=== PATIENT | male | born 1945 | race Caucasian/White ===

== ENCOUNTER 2017-01-27 16:19 | Outpatient (CLI) | payer MEDICARE, OTHER | END 2017-01-27 16:20 | disposition home or self-care (01) | DX: M51.36 Other intervertebral disc degeneration, lumbar region (principal) ==

== ENCOUNTER 2017-04-13 17:56 | Emergency (ER) | payer MEDICARE, OTHER ==
--- NOTE | 2017-04-13 18:46 | ED Physician Documentation ---
PD HPI ABD PAIN - Stated complaint Stated Complaint: ABD PX/FEVER - Chief complaint Chief Complaint: Abd Pain - History obtained from History obtained from: Patient - History of Present Illness Timing - onset: How many days ago (4) Timing - duration: Days (4) Timing - details: Abrupt onset, Still present (onset 4 days ago of central abdominal pain. Some nausea but no vomiting. easy satiety with eating, so less intake. Still drinking fluids so feels hydrated. Did not have BM for 5 days so though he might be constipated and took stool softener. [place] chilled couple days ago but no recorded fevers. Some hesitancy of urination. No leg weakness nor numbness.), Waxing and waning Quality: Cramping, Aching, Pain Location: Periumbilical Radiation: Lower back Improved by: No: Eating Worsened by: Eating (not worse pain but feels full easily) Associated symptoms: Nausea, Constipation, Hematuria (couple weeks ago for 1 days then stopped and has not had recurrence, but feels hesitancy and frequency with urination since.). No: Fever, Vomiting, Diarrhea, Melena Similar symptoms before: Has not had sx before Recently seen: Clinic (seen in Clinic 2 days ago with normal labs and was not tender so suggested Tylenol and stool softener. Seen back again today with some tenderness and persistent pain, so referred to ED.) Review of Systems Constitutional: reports: Chills. denies: Fever Nose: denies: Rhinorrhea / runny nose, Congestion Throat: denies: Sore throat Cardiac: denies: Chest pain / pressure, Palpitations Respiratory: denies: Dyspnea, Cough, Wheezing GI: reports: Abdominal Pain, Nausea, Constipation. denies: Vomiting, Diarrhea, Bloody / black stool : reports: Frequency, Hesitancy, Hematuria (2-3 weeks ago, once; has followup appt with Urologist tomorrow.). denies: Dysuria Skin: denies: Rash, Lesions Neurologic: denies: Focal weakness, Numbness Endocrine: reports: Weight loss (mild recent) Immunocompromised: denies: Immunocompromised PD PAST MEDICAL HISTORY - Past Medical History Cardiovascular: Hypertension, High cholesterol, Deep vein thrombosis (years ago with IVC filter placed at [facility]. Is not on blood thinners currently. ) Respiratory: None Neuro: None Endocrine/Autoimmune: None GI: None - Present Medications Home Medications: Ambulatory Orders Medication Instructions Recorded Confirmed Atorvastatin [Lipitor] 1 tab PO DAILY 04/13/17 04/13/17 Enalapril [Vasotec] 1 tab PO DAILY 04/13/17 04/13/17 Miracid 1 tab PO DAILY 04/13/17 amLODIPine [Norvasc] 10 mg PO DAILY 04/13/17 04/13/17 - Allergies Allergies/Adverse Reactions: Allergies Allergy/AdvReac Type Severity Reaction Status Date / Time No Known Drug Allergies Allergy Verified 04/13/17 19:08 - Family History Family history: reports: Venous thromboembolism. denies: Aortic aneursym, Aortic dissection PD ED PE NORMAL - Vitals Vital signs reviewed: Yes - General General: Alert and oriented X 3, No acute distress, Well developed/nourished - HEENT HEENT: Atraumatic, Pharynx benign - Neck Neck: Supple, no meningeal sign, No adenopathy - Cardiac Cardiac: RRR, No murmur - Respiratory Respiratory: Clear bilaterally - Abdomen Abdomen: Normal bowel sounds, Soft, Non distended, No organomegaly, Other ( tender central abdomen with local guarding but no percussion nor rebound tenderness. Femoral pulses equal and good. ) - Male Male : Deferred, Other (no inguinal hernias. Femoral pulses are symmetric and good. ) - Rectal Rectal: Deferred - Back Back: No CVA TTP - Derm Derm: Normal color, Warm and dry - Extremities Extremities: Normal ROM s pain, No edema, No calf tenderness / cord, Other ( good pulses, color and cap refill in both feet. ) - Neuro Neuro: Alert and oriented X 3, No motor deficit, No sensory deficit, Normal speech Results - Vitals Vitals: Vital Signs - 24 hr 04/13/17 04/13/17 04/13/17 18:08 21:12 21:40 Temperature 36.0 C L Heart Rate 108 H 79 91 Respiratory 17 16 18 Rate Blood Pressure 130/79 145/84 H 159/83 H O2 Saturation 99 98 97 04/13/17 21:42 Temperature Heart Rate 83 Respiratory 16 Rate Blood Pressure 152/85 H O2 Saturation 98 Oxygen O2 Source Room air - Labs Labs: Laboratory Tests 04/13/17 04/13/17 04/13/17 19:14 19:14 19:14 WBC 13.4 H RBC 4.41 L Hgb 14.6 Hct 41.8 L MCV 94.6 H MCH 33.0 H MCHC 34.9 RDW 12.9 Plt Count 435 MPV 7.4 Neut # 11.2 H Lymph # 0.9 L Rice # 1.2 H Eos # 0.0 Baso # 0.0 Absolute Nucleated RBC 0.00 Nucleated RBCs 0.0 Sodium 126 L Potassium 4.1 Chloride 93 L Carbon Dioxide 22 Anion Gap 11.0 BUN 7 Creatinine 0.7 Estimated GFR (MDRD) 111 Glucose 111 H Lactic Acid 1.3 Calcium 8.9 Magnesium 2.0 Total Bilirubin 1.5 H AST 16 ALT 19 Alkaline Phosphatase 72 Total Protein 7.3 Albumin 3.7 Globulin 3.6 Albumin/Globulin Ratio 1.0 Lipase 21 L Urine Color Urine Clarity Urine pH Ur Specific [place] Urine Protein Urine Glucose (UA) Urine Ketones Urine Occult Blood Urine Nitrite Urine Bilirubin Urine Urobilinogen Ur Leukocyte Esterase Ur Microscopic Review Urine Culture Comments 04/13/17 19:23 WBC RBC Hgb Hct MCV MCH MCHC RDW Plt Count MPV Neut # Lymph # [place] # Eos # Baso # Absolute Nucleated RBC Nucleated RBCs Sodium Potassium Chloride Carbon Dioxide Anion Gap BUN Creatinine Estimated GFR (MDRD) Glucose Lactic Acid Calcium Magnesium Total Bilirubin AST ALT Alkaline Phosphatase Total Protein Albumin Globulin Albumin/Globulin Ratio Lipase Urine Color YELLOW Urine Clarity CLEAR Urine pH 6.0 Ur Specific [place] 1.025 Urine Protein TRACE Urine Glucose (UA) NEGATIVE Urine Ketones 15 H Urine Occult Blood NEGATIVE Urine Nitrite NEGATIVE Urine Bilirubin NEGATIVE Urine Urobilinogen 0.2 (NORMAL) Ur Leukocyte Esterase NEGATIVE Ur Microscopic Review NOT INDICATED Urine Culture Comments NOT INDICATED - Rads (name of study) abd/pelvic CT Radiology: Prelim report reviewed, Discussed with rads (1.6x1.5 partially contained perforation of the left mid infrarenal non-aneurysmal abdominal aorta with some blood tracking inferiorly to the left groin. IVC filter noted. Diverticulosis without diverticultiits. ), Critical result PD MEDICAL DECISION MAKING - ED course Complexity details: reviewed results, re-evaluated patient (Patient remains stable with minimal pain and good vitals, peripheral pulses. [address], blood count good right now, Metoprolol IV given for slightly elevated BP. ), considered differential (Consider diverticulitis, abscess, urinary retention, constipation, vascular - will get labs and CT. ), d/w patient, d/w recruitment consultant ( Dr. Chance, Vascular at risk paraprofessional at [facility], who accepts the patient via arilift to go directly to the OR. We are pushing imagines through to their ISite and will give disc too. Airlift notified and arrival in 20 minutes. ) - Critical Care Time(min): 45 Time Includes: Direct patient care, Reassess patient, Document care, Coordinate care, Family consult for tx dec, See progress note Data interpretation: Labs, Pulse ox Procedures included in critical care time: Peripheral IV Departure - Departure Disposition: 02 Transfer Acute Care Hosp Clinical Impression: Aortic rupture Abdominal pain Qualifiers: Abdominal location: periumbilical Qualified Code(s): R10.33 - Periumbilical pain Condition: Stable Record reviewed to determine appropriate education?: Yes
[2017-04-13] MEDS ORDERED: ONDANSETRON 4 MG/2 ML VIAL IVP STA (19:06)
[2017-04-13] MEDS ORDERED: MORPHINE 2 MG/ML SYRINGE IVP STA (19:06)
[2017-04-13] MEDS ORDERED: SODIUM CHLORIDE 0.9% 1,000 ML IV ONE (19:06)
[2017-04-13] MEDS ORDERED: DOCUSATE SODIUM 100 MG CAPSULE PO STA (19:06)
[2017-04-13] MEDS ORDERED: MORPHINE 2 MG/ML SYRINGE ONE (19:10)
[2017-04-13] MEDS ORDERED: ONDANSETRON 4 MG/2 ML VIAL ONE (19:11)
[2017-04-13] MEDS ORDERED: DOCUSATE SODIUM 100 MG CAPSULE PO ONE (19:11)
[2017-04-13 19:20] LABS: BASOPHILS % (AUTO) 0.3 %; EOSINOPHILS % (AUTO) 0.3 %; HCT - HEMATOCRIT 41.8 % (42.0-52.0); HGB - HEMOGLOBIN 14.6 g/dL (14.0-18.0); LYMPHOCYTES # (AUTO) 0.9 10^3/uL (1.5-3.5); LYMPHOCYTES % (AUTO) 6.7 %; MEAN CORPUSCULAR HGB CONC 34.9 g/dL (32.0-36.0); MEAN CORPUSCULAR VOLUME 94.6 fL (80.0-94.0); MEAN PLATELET VOLUME 7.4 fL (7.4-11.4); MONOCYTES # (AUTO) 1.2 10^3/uL (0.0-1.0); MONOCYTES % (AUTO) 8.9 %; NEUTROPHILS # (AUTO) 11.2 10^3/uL (1.5-6.6); NEUTROPHILS % (AUTO) 83.8 %; RED BLOOD COUNT 4.41 10^6/uL (4.70-6.10); RED CELL DISTRIBUTION WIDTH 12.9 % (12.0-15.0); UNCORRECTED WHITE BLOOD COUNT 13.4 x10^3/uL; WHITE BLOOD COUNT 13.4 x10^3/uL (4.8-10.8)
[2017-04-13 19:35] LABS: BILIRUBIN,TOTAL 1.5 mg/dL (0.2-1.0); CALCIUM 8.9 mg/dL (8.5-10.3); CREATININE 0.7 mg/dL (0.6-1.2); POTASSIUM 4.1 mmol/L (3.5-5.0); TOTAL PROTEIN 7.3 g/dL (6.7-8.2)
[2017-04-13 19:58] LABS: BILIRUBIN,URINE NEGATIVE (NEGATIVE); UA CHARGE (STRIP ONLY) YES; UR CULTURE IF IND NOT INDICATED
[2017-04-13] MEDS ORDERED: IOPAMIDOL-300 100 ML VIAL IVP ONE (20:38)
--- NOTE | 2017-04-13 21:21 | CT Preliminary Report ---
Exam: CT Abdomen/Pelvis W/ IMPRESSION: 1. 1.6 x 1.5 cm partially contained perforation off the left aspect mid infrarenal non-aneurysmal abd ominal aorta. Blood products tracking inferiorly to the left groin. 2. IVC filter. 3. Colonic diverticulosis. RADIA The above critical findings were discussed with provider by Dr. Joann Patiño at 21:16 hrs on 04/13/17. SITE ID: [id number]
[2017-04-13] MEDS ORDERED: METOPROLOL 5 MG/5 ML VIAL IVP STA (21:26)
[2017-04-13] MEDS ORDERED: METOPROLOL 5 MG/5 ML VIAL IVP ONE (21:28)
--- NOTE | 2017-04-13 21:30 | CT Report ---
EXAM: CT ABDOMEN AND PELVIS EXAM DATE: 04/13/2017 08:47 PM. CLINICAL HISTORY: Prostate cancer. IVC filter. Mid abdominal pain for 4 days. COMPARISONS: 06/17/2016. TECHNIQUE: Routine helical CT imaging was performed through the abdomen and pelvis. IV contrast: 100 mL Isovue-300. Enteric contrast: No. Reconstructions: Coronal and sagittal. In accordance with CT protocol optimization, one or more of the following dose reduction techniques w ere utilized for this exam: automated exposure control, adjustment of mA and/or KV based on patient s ize, or use of iterative reconstructive technique. FINDINGS: Lung Bases: Unremarkable. Liver: Normal. No masses. Gallbladder/Bile Ducts: Unremarkable. Spleen: Normal. Pancreas: Moderate pancreatic atrophy. Pancreatic duct mildly enlarged measuring 4.0 mm proximally, t apering distally. No peripancreatic inflammatory changes. Adrenal Glands: Normal. Kidneys: Normal. No masses or hydronephrosis. Peritoneal Cavity/Bowel: Diverticuli of the colon. No free fluid, free air or adenopathy. No masses o r acute inflammatory process. The appendix is well visualized and normal. Pelvic Organs: Normal. The bladder and visualized pelvic organs are within normal limits. Vasculature: IVC filter. [place] abdominal aorta is of normal caliber. However, there is an acute relatively contained perfora tion off the left posterior lateral aspect mid infrarenal abdominal aorta. The false lumen measures 1 .6 x 1.5 cm. There is a 1 to 1.8 cm rind of blood products surrounding this pseudoaneurysm. In additi on, there are linear blood products extending inferiorly along the retroperitoneum, tracking out to t he left common femoral vessels without additional focal fluid collections. The superior margin of thi s aortic abnormality is 3.3 cm inferior to the renal artery origins. Bones: No significant abnormality. Other: None. IMPRESSION: 1. 1.6 x 1.5 cm partially contained perforation off the left aspect mid infrarenal non-aneurysmal abd ominal aorta. Blood products track inferiorly to the left groin. 2. IVC filter. 3. Colonic diverticulosis. RADIA The above critical findings were discussed with provider by Dr. Joann Patiño at 21:16 hrs on 04/13/17. Referring Provider Line: [phone] SITE ID: [id number]
[2017-04-13 21:54] VITALS: BP 152/90
== END 2017-04-13 22:25 | disposition short-term general hospital (02) ==
LOC: ED 17:56
DX: I71.3 Abdominal aortic aneurysm, ruptured (principal); R10.33 Periumbilical pain; K57.90 Diverticulosis of intestine, part unspecified, without perforation or abscess without bleeding
CPT/HCPCS: 36415; 51798; 74177; 80053; 81003; 83605; 83690; 83735; 85025; 96361; 96374; 96375; 99284; 99291; A9270; Q9967; 81001; 87086

== ENCOUNTER 2017-05-09 12:48 | Outpatient (CLI) | payer MEDICARE, OTHER ==
[2017-05-09] MEDS ORDERED: IOPAMIDOL-300 100 ML VIAL IVP ONE (13:58)
--- NOTE | 2017-05-09 18:55 | CT Report ---
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 Axial CT images of the abdomen and pelvis were obtained prior to and following 100 mL Isovue-300 intr avenously, with early arterial and delayed images obtained. Sagittal and coronal 3D reconstructions were performed. In accordance with CT protocol optimization, one or more of the following dose reduction techniques w ere utilized for this exam: automated exposure control, adjustment of mA and/or KV based on patient size, or use of iterative reconstructive technique. COMPARISON: 04/13/2017 Limited evaluation of the lung bases is unremarkable. ABDOMEN: The periaortic hematoma demonstrates no abnormal enhancement on the current examination. I t has decreased in size, now measuring 4.3 cm AP, previously 5.0 cm at a similar level. There is nor mal enhancement of the endograft lumen on the angiographic run, with no evidence of enhancement in th e excluded hematoma. No delayed enhancement is appreciated. The celiac, superior mesenteric, main l eft renal artery, main right renal artery, and accessory right renal artery all demonstrate normal en hancement. The inferior mesenteric artery is patent. The common, external, and internal iliac arter ies demonstrate normal enhancement. Allowing for the phases of contrast enhancement, the liver, sple en, pancreas, kidneys, and adrenal glands appear unremarkable. The gallbladder is not dilated. No b owel dilatation, free gas, or free fluid is present. No abdominal adenopathy is seen. The appendix is seen in the right lower quadrant, and is normal in caliber. Colonic diverticulosis is noted, with out CT evidence of diverticulitis. Fiducial markers are noted in the prostate. No pelvic free fluid or adenopathy is seen. Osseous structures demonstrate degenerative changes. IMPRESSION: INTERVAL DECREASE IN SIZE OF PERIAORTIC HEMATOMA. SUCCESSFUL ENDOGRAFT REPAIR OF AORTIC RUPTURE. JOB #: [id number] EXT JOB #:[id number]
== END 2017-05-09 12:49 | disposition home or self-care (01) ==
LOC: DI 12:48
PROVIDERS: ATTEND Internal Medicine
DX: Z09 Encounter for follow-up examination after completed treatment for conditions other than malignant neoplasm (principal)
CPT/HCPCS: 74174; Q9967

== ENCOUNTER 2017-05-17 12:09 | Day surgery (SDC) | payer MEDICARE, OTHER ==
[2017-05-17] MEDS ORDERED: LACTATED RINGERS 1,000 ML IV ONE ×2 (12:43→13:44)
[2017-05-17] MEDS ORDERED: MIDAZOLAM 2 MG/2 ML VIAL IVP ONE (12:55)
[2017-05-17] MEDS ORDERED: fentaNYL 100 MCG/2 ML VIAL IVP ONE (12:55)
--- NOTE | 2017-05-17 13:58 | PROCEDURE REPORT ---
DATE OF PROCEDURE: 05/17/2017 00:00:00 PROCEDURE: Colonoscopy with polypectomy. ENDOSCOPIST: Kathryn Infante MD. PRIMARY CARE: Jenn Mcintyre. INDICATION: History of colon polyp. PREMEDICATION: Fentanyl 200 mcg, Versed 10 mg IV titration. After informed consent was obtained, the patient was placed in the left lateral decubitus position. T he video colonoscope was introduced to the rectum and slowly advanced to the cecum. On slow withdrawa l, the mucosa was carefully examined. The scope was removed. The patient tolerated the procedure well . BLOOD LOSS: None. COMPLICATIONS: None. FINDINGS 1. A 6 mm transverse colon polyp jumbo biopsied x2 and removed completely. 2. Pancolonic diverticulosis. 3. Intense neovascularization in a target like pattern around the prostate bed. The bed itself is annemarie te bland and scarred. The patient will await biopsy results, but will need followup colonoscopy in 5 years. JOB #: [id number] EXT JOB #:[id number]
[2017-05-17 14:27] VITALS: BP 130/72
== END 2017-05-17 12:10 | disposition home or self-care (01) ==
LOC: SDS 12:09
PROVIDERS: ATTEND Internal Medicine Gastroenterology
PROC: 0DBL8ZX Excision of Transverse Colon, Via Natural or Artificial Opening Endoscopic, Diagnostic (ICD-10-PCS; principal; 2017-05-17 13:00)
DX: D12.3 Benign neoplasm of transverse colon (principal); K57.30 Diverticulosis of large intestine without perforation or abscess without bleeding; I10 Essential (primary) hypertension; E78.00 Pure hypercholesterolemia, unspecified; Z86.718 Personal history of other venous thrombosis and embolism
CPT/HCPCS: 45380; J7120

== ENCOUNTER 2017-05-18 13:50 | Outpatient (CLI) | payer MEDICARE, OTHER | END 2017-05-18 13:51 | disposition home or self-care (01) | LOC: LAB 13:50 | PROVIDERS: ATTEND Internal Medicine | DX: I71.8 Aortic aneurysm of unspecified site, ruptured (principal) | CPT/HCPCS: 36415; 87040 ==

== ENCOUNTER 2017-06-10 16:03 | Emergency (ER) | payer MEDICARE, OTHER ==
--- NOTE | 2017-06-10 16:28 | ED Physician Documentation ---
PD HPI ABD PAIN - Stated complaint Stated Complaint: AB PX - Chief complaint Chief Complaint: Abd Pain - History obtained from History obtained from: Patient - History of Present Illness Timing - onset: How many days ago (11) Timing - duration: Days (11) Timing - details: Gradual onset Pain level max: 5 Pain level now: 3 Quality: Aching, Dull, Pain Location: All over / everywhere Radiation: Other (non-radiating) Improved by: Other (nothing) Worsened by: Other (nothing) Associated symptoms: Nausea, Vomiting (last night), Constipation (for several days). 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 denies: Dysuria, Unable to Void, Incontinent Skin: denies: Rash Musculoskeletal: denies: Neck pain, Back pain Neurologic: denies: Focal weakness, Numbness, Headache PD PAST MEDICAL HISTORY - Past Medical History Cardiovascular: Hypertension, High cholesterol, Deep vein thrombosis Respiratory: None Neuro: None Endocrine/Autoimmune: None GI: None : None HEENT: Other Psych: None Musculoskeletal: None Derm: Eczema - Past Surgical History Past Surgical History: No - Present Medications Home Medications: Ambulatory Orders Medication Instructions Recorded Confirmed Atorvastatin [Lipitor] 1 tab PO DAILY 04/13/17 04/19/17 Enalapril [Vasotec] 1 tab PO DAILY 04/13/17 04/19/17 Miracid 1 tab PO DAILY 04/13/17 04/19/17 amLODIPine [Norvasc] 10 mg PO DAILY 04/13/17 04/19/17 Latanoprost 0.005% Ophth Drops 1 drops EACHEYE DAILY 04/19/17 04/19/17 [Xalatan Ophth Drops] Magnesium Citrate [Citroma] 296 ml PO ONCE PRN #1 solution 06/10/17 Polyethylene Glycol 3350 [Miralax] 17 gm PO DAILY PRN #10 packet 06/10/17 - Allergies Allergies/Adverse Reactions: Allergies Allergy/AdvReac Type Severity Reaction Status Date / Time No Known Drug Allergies Allergy Verified 04/13/17 19:08 - Social History Does the pt smoke?: No Smoking Status: Former smoker PD ED PE NORMAL - Vitals Vital signs reviewed: Yes - General General: Alert and oriented X 3, No acute distress, Well developed/nourished - HEENT HEENT: PERRL, Moist mucous membranes - Neck Neck: Supple, no meningeal sign - Cardiac Cardiac: RRR, Strong equal pulses - Respiratory Respiratory: No respiratory distress, Clear bilaterally - Abdomen Abdomen: Normal bowel sounds, Soft, Non tender, Non distended, Other (tympanic to percussion) - Back Back: No spinal TTP - Derm Derm: Warm and dry - Extremities Extremities: No edema, No calf tenderness / cord - Neuro Neuro: Alert and oriented X 3 - Psych Psych: Normal mood, Normal affect Results - Vitals Vitals: Vital Signs - 24 hr 06/10/17 06/10/17 06/10/17 16:14 17:13 18:24 Temperature 36.5 C Heart Rate 104 H 86 80 Respiratory 16 16 20 Rate Blood Pressure 127/84 H 127/75 113/72 O2 Saturation 97 100 Oxygen O2 Source Room air - Labs Labs: Laboratory Tests 06/10/17 06/10/17 06/10/17 16:38 16:38 17:00 WBC 9.1 RBC 4.04 L Hgb 13.2 L Hct 38.1 L MCV 94.5 H MCH 32.7 H MCHC 34.6 RDW 15.2 H Plt Count 578 H MPV 7.4 Neut # 7.1 H Lymph # 0.8 L [place] # 1.1 H Eos # 0.1 Baso # 0.1 Absolute Nucleated RBC 0.00 Nucleated RBCs 0.0 Sodium 130 L Potassium 3.7 Chloride 94 L Carbon Dioxide 26 Anion Gap 10.0 BUN 10 Creatinine 0.8 Estimated GFR (MDRD) 95 Glucose 126 H Calcium 9.0 Total Bilirubin 0.7 AST 20 ALT 21 Alkaline Phosphatase 67 Total Protein 7.0 Albumin 3.1 L Globulin 3.9 Albumin/Globulin Ratio 0.8 L Lipase 27 Urine Color YELLOW Urine Clarity CLEAR Urine pH 6.0 Ur Specific [place] >=1.030 H Urine Protein NEGATIVE Urine Glucose (UA) NEGATIVE Urine Ketones 15 H Urine Occult Blood NEGATIVE Urine Nitrite NEGATIVE Urine Bilirubin NEGATIVE Urine Urobilinogen 0.2 (NORMAL) Ur Leukocyte Esterase NEGATIVE Ur Microscopic Review NOT INDICATED Urine Culture Comments NOT INDICATED - Rads (name of study) CT abd/pelvis Radiology: Prelim report reviewed, EMP read contemporaneously, See rad report ( Status post endovascular stent repair of the abdominal aorta. Persistent amorphous soft tissue surrounds the mid to distal portions of the infrarenal abdominal aorta. Overall, this is similar to the previous study. No new retroperitoneal hematoma or definite endovascular leak. 2. Diverticulosis. No inflammation. Normal appendix. ) PD MEDICAL DECISION MAKING - ED course Complexity details: reviewed old records, reviewed results, re-evaluated patient , considered differential, d/w patient, d/w family ED course: Patient is a 71-year-old gentleman who presents to the emergency department with 11 days of abdominal pain and constipation. He is concerned about his endovascular stent repair of the abdominal aorta, CT scan reveals no acute abnormalities. No acute laboratory abnormalities. Declines pain medication here. We will place him on laxatives for constipation. We will have him follow -up with his doctor for further evaluation and care. He is well-appearing, nontoxic. Afebrile. He has a soft, nontender nondistended abdomen on serial exam. Tolerating p.o. without difficulty. Patient counseled regarding signs and symptoms for which I believe and urgent re-evaluation would be necessary. Patient with good understanding of and agreement to plan and is comfortable going home at this time This document was made in part using voice recognition software. While efforts are made to proofread this document, sound alike and grammatical errors may occur. Departure - Departure Disposition: Home, Self Care Clinical Impression: Dehydration, Hyponatremia Abdominal pain Qualifiers: Abdominal location: generalized Qualified Code(s): R10.84 - Generalized abdominal pain Constipation Qualifiers: Constipation type: unspecified constipation type Qualified Code(s): K59.00 - Constipation, unspecified Condition: Good Instructions: ED Constipation, ED Abdominal Pain Unkn Cause Follow-Up: Jenn Mcintyre PA [Primary Care Provider] - Within 1 week Prescriptions: Magnesium Citrate [Citroma] 296 ml PO ONCE PRN #1 solution PRN Reason: Constipation Polyethylene Glycol 3350 [Miralax] 17 gm PO DAILY PRN #10 packet PRN Reason: Constipation Comments: Drink plenty of water at home. Return if you worsen. You should have your electrolytes rechecked with your doctor next week. Discharge Date/Time: 06/10/17 18:26
[2017-06-10 16:44] LABS: BASOPHILS # (AUTO) 0.1 10^3/uL (0.0-0.1); BASOPHILS % (AUTO) 0.6 %; EOSINOPHILS # (AUTO) 0.1 10^3/uL (0.0-0.7); HCT - HEMATOCRIT 38.1 % (42.0-52.0); HGB - HEMOGLOBIN 13.2 g/dL (14.0-18.0); LYMPHOCYTES # (AUTO) 0.8 10^3/uL (1.5-3.5); LYMPHOCYTES % (AUTO) 8.3 %; MEAN CORPUSCULAR HEMOGLOBIN 32.7 pg (27.0-31.0); MEAN CORPUSCULAR HGB CONC 34.6 g/dL (32.0-36.0); MEAN CORPUSCULAR VOLUME 94.5 fL (80.0-94.0); MEAN PLATELET VOLUME 7.4 fL (7.4-11.4); MONOCYTES # (AUTO) 1.1 10^3/uL (0.0-1.0); MONOCYTES % (AUTO) 12.2 %; NEUTROPHILS # (AUTO) 7.1 10^3/uL (1.5-6.6); NEUTROPHILS % (AUTO) 77.9 %; RED BLOOD COUNT 4.04 10^6/uL (4.70-6.10); RED CELL DISTRIBUTION WIDTH 15.2 % (12.0-15.0); UNCORRECTED WHITE BLOOD COUNT 9.1 x10^3/uL; WHITE BLOOD COUNT 9.1 x10^3/uL (4.8-10.8)
[2017-06-10 16:56] LABS: ALBUMIN/GLOBULIN RATIO 0.8 (1.0-2.2); BILIRUBIN,TOTAL 0.7 mg/dL (0.2-1.0); CREATININE 0.8 mg/dL (0.6-1.2); POTASSIUM 3.7 mmol/L (3.5-5.0)
[2017-06-10 17:15] LABS: BILIRUBIN,URINE NEGATIVE (NEGATIVE); UA CHARGE (STRIP ONLY) YES; UR CULTURE IF IND NOT INDICATED
[2017-06-10] MEDS ORDERED: SODIUM CHLORIDE 0.9% 500 ML IV ONE (17:53)
--- NOTE | 2017-06-10 18:05 | CT Preliminary Report ---
Exam: CT Abdomen/Pelvis Angio IMPRESSION: 1. Status post endovascular stent repair of the abdominal aorta. Persistent amorphous soft tissue lisa rounding density mid to distal portions of the infrarenal abdominal aorta. Overall, this is similar t o the previous study. No new retroperitoneal hematoma or definite endovascular leak. 2. Diverticulosis. No inflammation. Normal appendix. RADIA SITE ID: [id number]
--- NOTE | 2017-06-10 18:19 | CT Report ---
EXAM: CT ANGIOGRAM ABDOMEN AND PELVIS WITH CONTRAST EXAM DATE: 06/10/2017 05:34 p.m. CLINICAL HISTORY: Abdominal pain, history of aortic dissection. COMPARISONS: 05/09/2017 and 04/13/2017 and multiple prior studies. TECHNIQUE: Routine helical CT angiogram imaging was performed through the abdomen and pelvis in the a rterial phase. IV contrast: 100 mL Isovue-300. Enteric contrast: No. Reconstructions: Coronal, sagitt al, and 3D MIP reconstructions. In accordance with CT protocol optimization, one or more of the following dose reduction techniques w ere utilized for this exam: automated exposure control, adjustment of mA and/or KV based on patient s ize, or use of iterative reconstructive technique. FINDINGS: Vasculature: Patient is status post endovascular stent repair of the abdominal aorta. The stent opaci fies. No contrast is noted outside of the endovascular stent. The amorphous soft tissue density surro unding the excluded aorta and between the aortic wall and the stent is again identified. This tissue measures approximately 4.4 x 4.6 cm on image 4, 104. As before, the fat planes between the psoas musc le and the aorta are obliterated. Celiac axis, common hepatic, proper hepatic and splenic arteries ar e widely patent. Conventional hepatic arterial anatomy noted. Single left and duplicated right renal arteries are patent at the origin. TANIA is opacified but the origin is not well seen due to inflammati on and surrounding tissue in the lower abdominal aorta. Patient has an infrarenal IVC filter. Soft ti ssue stranding and densities are noted between the aorta and IVC as before. Lung Bases: Incidental small hiatal hernia noted. No effusions. Abdominal Solid Organs: Mild nodular thickening of the left adrenal gland. Normal liver, gallbladder and right adrenal gland. Spleen is unremarkable. Mild prominence of the pancreatic duct without a mas s, calcification or atrophy. No renal mass, stones or hydronephrosis. The visualized portions of both ureters are normal. Peritoneal Cavity: Normal. No free fluid, free air, or acute inflammatory process. Normal appendix. T here are multiple diverticula seen which most severely affect the sigmoid colon. No wall thickening o r adjacent inflammation seen. No obstruction noted. Pelvic Organs: Prostate gland contains central coarse prostate calcifications. The prostate gland and seminal vesicles are mildly enlarged. Bladder is incompletely distended and appears thick-walled. No pelvic mass or adenopathy. Small fat-containing left inguinal hernia. Bones: No significant abnormality. Other: None. IMPRESSION: 1. Status post endovascular stent repair of the abdominal aorta. Persistent amorphous soft tissue lisa rounds the mid to distal portions of the infrarenal abdominal aorta. Overall, this is similar to the previous study. No new retroperitoneal hematoma or definite endovascular leak. 2. Diverticulosis. No inflammation. Normal appendix. RADIA Referring Provider Line: [phone] SITE ID: [id number]
[2017-06-10 18:25] VITALS: BP 113/72
== END 2017-06-10 18:26 | disposition home or self-care (01) ==
LOC: ED 16:03
DX: E87.1 Hypo-osmolality and hyponatremia (principal); E86.0 Dehydration; K59.00 Constipation, unspecified; I10 Essential (primary) hypertension; E78.00 Pure hypercholesterolemia, unspecified; Z86.718 Personal history of other venous thrombosis and embolism; Z87.891 Personal history of nicotine dependence
CPT/HCPCS: 36415; 74174; 80053; 81001; 81003; 83690; 85025; 87086; 99283

== ENCOUNTER 2018-02-24 13:44 | Outpatient (CLI) | payer MEDICARE, OTHER ==
--- NOTE | 2018-02-25 16:36 | CT Report ---
EXAM: CT LUMBAR SPINE WITHOUT CONTRAST EXAM DATE: 02/24/2018 02:05 PM. CLINICAL HISTORY: Low back and bilateral lower extremity pain. COMPARISONS: 01/27/2017 radiograph lumbar spine, bone scan 05/13/2014. TECHNIQUE: Thin-section axial images were acquired of the lumbar spine from T12 to S1 without contras t. Post-processing: Coronal and sagittal reformats. Other: None. In accordance with CT protocol optimization, one or more of the following dose reduction techniques w ere utilized for this exam: automated exposure control, adjustment of mA and/or KV based on patient s ize, or use of iterative reconstructive technique. FINDINGS: Alignment: No fractures. Moderate osteopenia is present. Bones: Five [id number] lumbar vertebral bodies are present. No fractures or bone lesions. Disk Levels/Facets: T11-T12: Anterior endplate spurring is present. T12-L1: Unremarkable. L1-L2: Anterior endplate spurring is present. A mild disk bulge and moderate facet hypertrophy result in minimal spinal canal, minimal right foraminal, and mild left foraminal narrowing. L2-L3: Mild disk height loss is accompanied by anterior endplate spurring. A broad-based disk bulge, moderate ligamentum flavum hypertrophy, and moderate facet hypertrophy result in mild spinal canal an d bilateral foraminal narrowing. L3-L4: Anterior endplate spurring is present. A broad-based disk bulge, mild ligamentum flavum hypert rophy, and moderate facet hypertrophy result in moderate spinal canal, mild right foraminal, and mode rate left foraminal narrowing. L4-L5: A broad-based disk bulge, severe ligamentum flavum hypertrophy, and moderate facet hypertrophy cause severe spinal canal and moderate bilateral foraminal narrowing. L5-S1: Foraminal area protrusions result in minimal left and mild right foraminal narrowing. Musculature: Normal. No fatty atrophy. Other: Arterial calcifications indicate atherosclerosis. There is a distal aortic stent. IMPRESSION: 1. Mild left foraminal narrowing at L1-L2 due to disk and posterior element degenerative changes. 2. Mild spinal canal and bilateral foraminal narrowing at L2-L3 due to disk and posterior element deg enerative changes. 3. Moderate spinal canal, mild right foraminal, and moderate left foraminal narrowing at L3-L4 due to disk and posterior element degenerative changes. 4. Severe spinal canal and moderate bilateral foraminal narrowing at L4-L5 due to disk and posterior element degenerative changes. 5. Mild right foraminal narrowing at L5-S1 due to foraminal area protrusions. [facility] Referring Provider Line: [phone] SITE ID: [id number]
== END 2018-02-24 13:45 | disposition home or self-care (01) ==
LOC: DI 13:44
PROVIDERS: ATTEND Orthopaedic Surgery
DX: M54.5 Low back pain (principal); M51.86 Other intervertebral disc disorders, lumbar region; M48.061 Spinal stenosis, lumbar region without neurogenic claudication
CPT/HCPCS: 72131

== ENCOUNTER 2018-03-05 15:24 | Outpatient (CLI) | payer MEDICARE, OTHER ==
[2018-03-05 15:46] LABS: MEAN CORPUSCULAR HEMOGLOBIN 31.9 pg (27.0-31.0); MEAN CORPUSCULAR VOLUME 96.9 fL (80.0-94.0); RED BLOOD COUNT 4.38 10^6/uL (4.70-6.10); RED CELL DISTRIBUTION WIDTH 14.7 % (12.0-15.0); WHITE BLOOD COUNT 4.6 x10^3/uL (4.8-10.8)
[2018-03-05 15:59] LABS: CALCIUM 9.1 mg/dL (8.5-10.3); CREATININE 0.7 mg/dL (0.6-1.2)
== END 2018-03-05 15:25 | disposition home or self-care (01) ==
LOC: LAB 15:24
PROVIDERS: ATTEND Orthopaedic Surgery
DX: Z01.818 Encounter for other preprocedural examination (principal)
CPT/HCPCS: 36415; 80048; 85027; 93005